=== PATIENT | female | born 1960 | race African-American/Black ===

== ENCOUNTER 2021-04-11 09:58 | Outpatient (CLI) | payer OTHER | END 2021-04-11 09:59 | disposition home or self-care (01) | LOC: CSHULT 09:58 | PROVIDERS: ATTEND Family Medicine | DX: N17.9 Acute kidney failure, unspecified (principal) | CPT/HCPCS: 76770 ==

== ENCOUNTER 2021-09-30 09:32 | Outpatient (CLI) | payer OTHER ==
[2021-09-30 11:20] LABS: Anion Gap 15 mmol/L (10-20); BUN (Urea Nitrogen) 13 mg/dL (9.8-20.1); Calc. Creatinine Clearance 0 mL/min (70-130); Calcium 8.8 mg/dL (7.8-10.44); Carbon Dioxide 34 mmol/L (23-31); Chloride 96 mmol/L (98-107); Glucose 108 mg/dL (80-115); Potassium 3.1 mmol/L (3.5-5.1); Sodium 142 mmol/L (136-145)
[2021-09-30 20:44] LABS: SARS-CoV-2 PCR by NAA Not Detected (NotDetected)
== END 2021-09-30 09:33 | disposition home or self-care (01) ==
LOC: CSHLAB 09:32
PROVIDERS: ATTEND Surgery
DX: Z01.818 Encounter for other preprocedural examination (principal); Z20.822 Contact with and (suspected) exposure to COVID-19; K80.20 Calculus of gallbladder without cholecystitis without obstruction
CPT/HCPCS: 80048; 93005; 93010; U0003; U0005

== ENCOUNTER 2021-10-03 06:01 | Day surgery (SDC) | payer OTHER ==
[2021-09-24 15:10] VITALS: BMI 33.2
[2021-10-03] MEDS ORDERED: Lidocaine 1% MPF 2 ML VIAL ONE (06:52)
[2021-10-03] MEDS ORDERED: Bupivacaine PF 0.5% 30 ML VIAL ONE (06:53)
[2021-10-03] MEDS ORDERED: EPINEPHrine 1 MG/ML AMP ONE (06:53)
[2021-10-03] MEDS ORDERED: Lidocaine 1% PF 5 ML VIAL ONE (06:58)
[2021-10-03] MEDS ORDERED: Fentanyl 100 MCG/2 ML VIAL ONE (06:58)
[2021-10-03] MEDS ORDERED: PROPOFOL 20 ML ONE (06:58)
[2021-10-03] MEDS ORDERED: Rocuronium Bromide 10 MG/ML (10ML VIAL) ONE (06:58)
[2021-10-03] MEDS ORDERED: ceFAZolin 2 GM/Dextrose 50 ML IVPB ONE (07:29)
[2021-10-03] MEDS ORDERED: ePHEDrine Sulfate 50 MG/10 ML VIAL ONE (07:48)
[2021-10-03] MEDS ORDERED: PHENYLEPHRINE-NS 100 MCG/ML 10 ML SYRINGE ONE (07:52)
[2021-10-03] MEDS ORDERED: Glycopyrrolate 0.2 MG/ML 5 ML SYRINGE ONE (07:52)
[2021-10-03] MEDS ORDERED: Ondansetron PF 4 MG/2 ML Vial ONE (08:40)
[2021-10-03] MEDS ORDERED: HYDROcodone/Acetaminophen 5/325 mg Tablet PO PRN (09:10)
[2021-10-03] MEDS ORDERED: HYDROmorphone 0.5 MG/0.5 ML SYRINGE ONE (09:41)
== END 2021-10-03 10:45 | disposition home or self-care (01) ==
LOC: CSHSDC 06:01
PROVIDERS: ATTEND Surgery
PROC: 0FT44ZZ Resection of Gallbladder, Percutaneous Endoscopic Approach (ICD-10-PCS; principal; 2021-10-03)
DX: K80.10 Calculus of gallbladder with chronic cholecystitis without obstruction (principal); I10 Essential (primary) hypertension; Z79.899 Other long term (current) drug therapy; Z79.82 Long term (current) use of aspirin; E11.9 Type 2 diabetes mellitus without complications; E78.5 Hyperlipidemia, unspecified; M10.9 Gout, unspecified; Z79.84 Long term (current) use of oral hypoglycemic drugs
CPT/HCPCS: 88304; C1776; J0171; J0690; J1170; J2405; J2704; J3010; J3490; S0020

== ENCOUNTER 2022-03-12 13:02 | Emergency (ER) | payer OTHER | END 2022-03-12 15:00 | disposition home or self-care (01) | LOC: CSHERS 13:02 | DX: R51.9 Headache, unspecified (principal); E11.9 Type 2 diabetes mellitus without complications; E78.5 Hyperlipidemia, unspecified; I10 Essential (primary) hypertension | CPT/HCPCS: 70450 ==

== ENCOUNTER 2022-03-21 08:15 | Outpatient (CLI) | payer OTHER | END 2022-03-21 08:16 | disposition home or self-care (01) | LOC: CSHMAMMO 08:15 | PROVIDERS: ATTEND Family Medicine | DX: Z12.31 Encounter for screening mammogram for malignant neoplasm of breast (principal) | CPT/HCPCS: 77063; 77067 ==

== ENCOUNTER 2023-06-23 10:50 | Outpatient (CLI) | payer OTHER | END 2023-06-23 10:51 | disposition home or self-care (01) | LOC: CSHMAMMO 10:50 | PROVIDERS: ATTEND Family Medicine | DX: Z12.31 Encounter for screening mammogram for malignant neoplasm of breast (principal) | CPT/HCPCS: 77063; 77067 ==

== ENCOUNTER 2023-07-08 22:28 | Inpatient (IN) | payer OTHER ==
[2023-07-08 23:13] LABS: #Eosinphils 0.2 10x3/uL (0.0-0.5); #Monocytes 0.3 10x3/uL (0.0-1.1); %Basophils 1.1 % (0.0-2.0); %Eosinophils 8.3 % (0.0-6.0); %Lymphocytes 41.7 % (18.0-47.0); %Monocytes 12.5 % (0.0-10.0); %Neutrophils 36.4 % (40.0-75.0); Hematocrit 36.8 % (34.9-44.5); Hemoglobin 12.5 g/dL (12.0-15.5); Mean Corpuscular Hemoglobin 28.7 pg (27.0-33.0); Mean Corpuscular Volume 84.4 fl (81.6-98.3); Mean Platelet Volume 12.3 fl (7.4-10.4); Platelet Count 170 10x3/uL (150-450); RBC Distribution Width 12.4 % (11.5-14.5); Red Blood Cell (RBC) Count 4.36 10x6/uL (3.90-5.03); White Blood Cell (WBC) Count 2.6 10x3/uL (3.5-10.5)
[2023-07-08 23:26] LABS: INR-International Normal Ratio 1.2; PTT 27.6 sec (22.0-33.0); Prothrombin Time 12.7 sec (9.5-12.1)
[2023-07-08 23:28] LABS: ALT (SGPT) 32 U/L (8-55); AST (SGOT) 70 U/L (5-34); Albumin 3.1 g/dL (3.4-4.8); Alkaline Phosphatase 108 U/L (40-110); Anion Gap 14 mmol/L (10-20); BUN (Urea Nitrogen) 13 mg/dL (9.8-20.1); Bilirubin, Total 0.6 mg/dL (0.2-1.2); CK (CPK) 204 U/L (29-168); Calc. Creatinine Clearance 0 mL/min (70-130); Calcium 8.5 mg/dL (7.8-10.44); Carbon Dioxide 26 mmol/L (23-31); Chloride 101 mmol/L (98-107); Estimated GFR 47; Glucose 277 mg/dL (80-115); Potassium 3.7 mmol/L (3.5-5.1); Protein, Total 6.1 g/dL (5.8-8.1); Sodium 137 mmol/L (136-145)
[2023-07-08 23:34] LABS: Troponin I Less than 0.010 ng/mL (< 0.028)
[2023-07-08] MEDS ORDERED: Acetaminophen 500 MG TAB ONE (23:36)
[2023-07-09 01:10] LABS: Magnesium 1.6 mg/dL (1.6-2.6)
[2023-07-09 01:32] LABS: Bilirubin Neg (Negative); Blood, Urine Negative (Negative); Glucose, Urine (Dipstick) Normal (Negative); Ketone, Urine 5 mg/dL (Negative); Leukocyte 25 (Negative); Nitrite Negative (Negative); Protein, Urine (Dipstick) 30 mg/dl (Neg-Trace); Urobilinogen Normal mg/dL (Less than 2)
[2023-07-09 01:39] LABS: Bacteria/HPF 1+ HPF (None Seen); CAUTI Indications for Culture Immunosuppressed; Clarity Slightly Cloudy (Clear); RBC/HPF None Seen HPF (0-3)
[2023-07-09 01:41] LABS: Urine Culture Reflex Yes Yes
[2023-07-09] MEDS ORDERED: Glucagon 1 MG/ML KIT IM PRN (01:41)
[2023-07-09] MEDS ORDERED: Senokot S 8.6-50 MG TAB PO PRN (01:41)
[2023-07-09] MEDS ORDERED: Calcium Carbonate 500 MG ChewTAB PO PRN (01:41)
[2023-07-09] MEDS ORDERED: Guaifenesin DM 100-10/5 ML UDCUP PO PRN (01:41)
[2023-07-09] MEDS ORDERED: Dextrose 5% in Water 1,000 ML IV PRN (01:41)
[2023-07-09] MEDS ORDERED: HumaLOG 300 UNITS/3 ML VIAL SC PRN (01:41)
[2023-07-09] MEDS ORDERED: Dextrose 50% Abboject 50 ML SYRINGE SLOW IVP PRN (01:41)
[2023-07-09] MEDS ORDERED: Ondansetron PF 4 MG/2 ML Vial IVP PRN (01:41)
[2023-07-09] MEDS ORDERED: Acetaminophen 325 MG TAB PO PRN (01:41)
[2023-07-09] MEDS ORDERED: cefTRIAXone (ROCEPHIN) 2 GM VIAL ONE (01:51)
[2023-07-09] MEDS ORDERED: Potassium Chloride 20 MEQ TAB PO SCH (04:30)
[2023-07-09] MEDS ORDERED: Magnesium 2 GM/50 ML(in water) 2 GM in Premix 1 BAG IVPB SCH (04:30)
[2023-07-09] MEDS ORDERED: Lactated Ringer's 1,000 ML IV SCH (04:30)
[2023-07-09 05:09] LABS: Cardiac Risk 3.8 (Less than 4.5)
[2023-07-09 05:18] VITALS: BMI 38.0
[2023-07-09] MEDS: Lacosamide 50 mg Tablet PO SCH ×2 (06:27→19:00)
[2023-07-09] MEDS ORDERED: metFORMIN 500 MG TAB PO SCH ×2 (08:00→09:00)
[2023-07-09] MEDS: levETIRAcetam 500 MG TAB PO SCH ×2 (08:43→21:59)
[2023-07-09] MEDS: Colchicine 0.6 MG TAB PO SCH (08:44)
[2023-07-09] MEDS: Atorvastatin Calcium 10 MG TAB PO SCH (08:45)
[2023-07-09] MEDS: glipiZIDE 5 MG TAB PO SCH ×2 (08:45→16:30)
[2023-07-09] MEDS: Gabapentin 300 MG CAP PO SCH ×3 (08:58→21:57)
[2023-07-09] MEDS ORDERED: Gabapentin 100 MG CAP PO SCH (09:00)
[2023-07-09] MEDS ORDERED: Lacosamide 50 mg Tablet PO SCH (09:00)
[2023-07-09 13:13] LABS: Hemoglobin A1c 7.1 % (4.0-6.0)
[2023-07-09] MEDS ORDERED: tiZANidine HCl 4 MG TAB PO SCH (21:00)
[2023-07-09] MEDS ORDERED: Aspirin 81 mg Enteric Coated Tablet PO SCH (21:00)
[2023-07-09] MEDS ORDERED: Amlodipine 5 MG TAB PO SCH (22:45)
[2023-07-09] MEDS ORDERED: Losartan 25 MG TAB PO SCH (23:00)
[2023-07-10] MEDS ORDERED: cefTRIAXone\\ROCEPHIN 1 GM in Sodium Chloride 0.9% 100 ML IVPB SCH (02:00)
[2023-07-10 04:39] LABS: Hematocrit 36.8 % (34.9-44.5); Hemoglobin 12.3 g/dL (12.0-15.5); Mean Corpuscular HGB CONC 33.4 g/dL (32.0-36.0); Mean Corpuscular Hemoglobin 28.1 pg (27.0-33.0); Mean Platelet Volume 12.5 fl (7.4-10.4); Platelet Count 161 10x3/uL (150-450); RBC Distribution Width 12.6 % (11.5-14.5); Red Blood Cell (RBC) Count 4.38 10x6/uL (3.90-5.03); White Blood Cell (WBC) Count 2.6 10x3/uL (3.5-10.5)
[2023-07-10 04:54] LABS: Anion Gap 14 mmol/L (10-20); BUN (Urea Nitrogen) 14 mg/dL (9.8-20.1); Calc. Creatinine Clearance 72 mL/min (70-130); Calcium 8.6 mg/dL (7.8-10.44); Carbon Dioxide 24 mmol/L (23-31); Chloride 104 mmol/L (98-107); Estimated GFR 42; Glucose 110 mg/dL (80-115); Potassium 3.7 mmol/L (3.5-5.1); Sodium 138 mmol/L (136-145)
[2023-07-10] MEDS: Lacosamide 50 mg Tablet PO SCH ×2 (07:02→22:17)
[2023-07-10] MEDS: Gabapentin 300 MG CAP PO SCH ×2 (08:21→16:00)
[2023-07-10] MEDS: glipiZIDE 5 MG TAB PO SCH ×2 (08:21→22:16)
[2023-07-10] MEDS: Colchicine 0.6 MG TAB PO SCH (08:21)
[2023-07-10] MEDS: Atorvastatin Calcium 10 MG TAB PO SCH (08:21)
[2023-07-10] MEDS: levETIRAcetam 500 MG TAB PO SCH (08:22)
[2023-07-10] MEDS ORDERED: Losartan 25 MG TAB PO SCH ×2 (09:00→21:00)
[2023-07-10 17:00] VITALS: BP 142/83; TEMP 98.1
[2023-07-10] MEDS ORDERED: Amlodipine 5 MG TAB PO SCH (21:00)
== END 2023-07-10 18:14 | disposition home or self-care (01) | DRG 69 ==
LOC: CSHERS 22:28 → CSHTELE 07-09 03:58 → INTOOBSV 07-09 03:58 → OBSVTOIN 07-10 12:55
PROVIDERS: ADMIT Student in an Organized Health Care Education/Training Program; ATTEND Internal Medicine
DX: G45.9 Transient cerebral ischemic attack, unspecified (principal); N39.0 Urinary tract infection, site not specified; R29.90 Unspecified symptoms and signs involving the nervous system; G40.909 Epilepsy, unspecified, not intractable, without status epilepticus; I12.9 Hypertensive chronic kidney disease with stage 1 through stage 4 chronic kidney disease, or unspecified chronic kidney disease; N18.30 Chronic kidney disease, stage 3 unspecified; E11.22 Type 2 diabetes mellitus with diabetic chronic kidney disease; F10.90 Alcohol use, unspecified, uncomplicated; I95.9 Hypotension, unspecified; E11.40 Type 2 diabetes mellitus with diabetic neuropathy, unspecified; D72.819 Decreased white blood cell count, unspecified; D72.10 Eosinophilia, unspecified; Z96.653 Presence of artificial knee joint, bilateral; Z88.0 Allergy status to penicillin; Z88.8 Allergy status to other drugs, medicaments and biological substances; Z79.82 Long term (current) use of aspirin; Z79.899 Other long term (current) drug therapy; Z90.49 Acquired absence of other specified parts of digestive tract; Z90.710 Acquired absence of both cervix and uterus; Z98.890 Other specified postprocedural states; Z82.49 Family history of ischemic heart disease and other diseases of the circulatory system; Z86.73 Personal history of transient ischemic attack (TIA), and cerebral infarction without residual deficits
CPT/HCPCS: 36415; 36416; 70450; 70551; 71045; 80048; 80053; 80061; 81001; 82550; 82607; 83036; 83735; 84439; 84443; 84484; 85025; 85027; 85610; 85730; 87040; 87086; 93306; 93880; 96374; 96375; 96376; G0378; J0696; J1815; J3475; J3490; J7120

== ENCOUNTER 2024-07-06 09:11 | Outpatient (CLI) | payer OTHER | END 2024-07-06 09:12 | disposition home or self-care (01) | LOC: CSHCT 09:11 | PROVIDERS: ATTEND Psychiatry & Neurology Neurology | DX: R51.9 Headache, unspecified (principal) | CPT/HCPCS: 70450 ==

== ENCOUNTER 2025-05-31 12:54 | Outpatient (CLI) | payer MEDICARE, OTHER | END 2025-05-31 12:55 | disposition home or self-care (01) | LOC: CSHCT 12:54 | PROVIDERS: ATTEND Internal Medicine Nephrology | DX: R93.0 Abnormal findings on diagnostic imaging of skull and head, not elsewhere classified (principal) | CPT/HCPCS: 70450 ==